=== PATIENT | male | born 1975 | race Caucasian/White ===

== ENCOUNTER 2019-08-27 15:30 | Emergency (ER) | payer OTHER, SELFPAY ==
[2019-08-27 15:31] VITALS: BP 129/95; PULSE 82; RESP 18; TEMP 36.8; O2SAT 94; BMI 22.4
[2019-08-27 15:34] VITALS: BP 129/95; PULSE 82; RESP 18; TEMP 36.8; O2SAT 94
[2019-08-27 15:36] VITALS: O2SAT 94
--- NOTE | 2019-08-27 15:48 | ED.VIS.GEN ---
History of Present Illness Chief Complaint: Cough Detail of Chief Complaint: Cough, nausea and vomiting Informant: Patient Onset: Days Context: Gradual Onset Narrative: Patient had a previous hiatal hernia repair. Over the past several days to week or so he has had increasing symptoms consistent with his prior hiatal hernia. He has had reflux along with nausea and vomiting. He is scheduled to undergo an upper GI series here next week. Patient denies fever or chills. - Past Medical History (1) Asthma Status: Chronic (2) High cholesterol Status: Chronic Past Medical History - Allergies and Home Meds Allergies/Adverse Reactions: Allergies azithromycin Allergy (Verified 08/27/19 15:35) Angioedema Primary Care Physician: Miguel Batista MD [Primary Care Provider] - Prior records reviewed: Yes Smoking Status: Former smoker Review of Systems General: Denies: Chills, Fever Eyes: Denies: Visual changes - bilaterally ENT: Denies: Bilateral ear pain Cardiovascular: Denies: Chest pain Respiratory: Reports: Cough. Denies: Dyspnea Gastrointestinal: Reports: Nausea, Vomiting Genitourinary: Denies: Dysuria Musculoskeletal: Denies: Extremity Pain Skin: Denies: Rash Neurological: Denies: Headache Allergy: Denies: Uticaria Physical Exam Vital Signs/Narrative: Vital Signs Temp Pulse Resp BP Pulse Ox 08/27/19 15:34 98.3 F 82 18 129/95 H 94 08/27/19 15:31 98.3 F 82 18 129/95 H 94 Inital Vital Signs reviewed: Yes General: Well nourished, Well developed Head: Normocephalic ENT: Moist mucous membranes Neck: Supple Cardiovascular: Regular rate, Regular rhythm Respiratory: No distress, CTA bilaterally Abdomen: Soft, Nontender, Normal bowel sounds Extremities: Nontender Skin: Normal color Neurological: Alert, Oriented x3 Psychological: Normal affect Diagnostic/Tx/Re-eval Impressions Chest X-Ray 08/27/19 16:20 IMPRESSION: Normal x-ray examination of the chest. Electronically Signed: Kendell Weir MD at 16:32 EDT Tel , Service support , 08/27/19 16:20 Chest 1 View (Portable) [RAD] Stat Laboratory Results 08/27/19 08/27/19 16:00 16:00 WBC 8.6 RBC 5.47 Hgb 16.5 Hct 49.2 MCV 89.9 MCH 30.2 MCHC 33.5 RDW Std Deviation 41.0 RDW Coeff of Jessica 12.4 Plt Count 257 MPV 9.6 Immature Gran % (Auto) 0.600 Neut % (Auto) 71.3 H Lymph % (Auto) 16.8 L Rhea % (Auto) 10.1 H Eos % (Auto) 0.9 Baso % (Auto) 0.3 Absolute Neuts (auto) 6.1 Absolute Lymphs (auto) 1.45 Nucleated RBC % 0 Sodium 140 Potassium 3.9 Chloride 102 Carbon Dioxide 33.0 H Anion Gap 5 BUN 17 Creatinine 1.03 Estim Creat Clear Calc 86.03 Est GFR (MDRD) Af Amer 101 Est GFR (MDRD) Non-Af 84 BUN/Creatinine Ratio 16.5 Glucose 97 Calcium 9.5 Total Bilirubin 0.40 Direct Bilirubin 0.16 AST 20 ALT 40 Alkaline Phosphatase 100 Total Protein 7.5 Albumin 4.0 Globulin 3.5 Lipase 70 L - Medical Decision Making Patient was given IV Zofran. On repeat evaluation nausea is improved. Chest x-ray is unremarkable. I did advise patient that he will be given a prescription for Zofran and he is to continue Pepcid. I did discuss with him that there is always a possibility that he could have coronavirus, however he does not have the classic symptoms. At this time he would be stable for discharge to home and self monitoring anyway. He states he already has information at home on how to do that. ED Disposition - Plan for ED Patient: Disposition: Home or Assisted Living Diagnosis: Vomiting Instructions: ED Nausea Vomiting Adult Prescriptions: Ondansetron [Zofran Odt] 4 mg PO Q8H PRN PRN #10 tab PRN Reason: Nausea Transmission Status: Pending to [id number] Referrals: Miguel Batista MD [Primary Care Provider] - 1 Week
[2019-08-27] MEDS: Ondansetron 4 MG/2 ML Vial IV (16:00)
[2019-08-27 16:12] LABS: Absolute Lymphocyte Count 1.45 X10^3/uL (0.83-4.51); Absolute Neutrophil Count 6.1 X10^3/uL (2.0-7.7); Basophil# 0.03 X10^3/uL; Basophil% 0.3 % (0-1); Eosinophil# 0.08 X10^3/uL; Eosinophils% 0.9 % (0-5); Hematocrit 49.2 % (40-54); Hemoglobin 16.5 g/dL (13.0-16.5); Lymphocyte # 1.45 X10^3/ul (4.0); Lymphocyte % 16.8 % (19-41); Mean Corp Hgb Conc 33.5 g/dL (32-36); Mean Corpuscular Hgb 30.2 pg (27.0-32.0); Mean Corpuscular Volume 89.9 fL (80-94); Mean Platelet Vol. 9.6 fl (6.2-12.0); Monocyte# 0.87 X10^3/uL; Monocyte% 10.1 % (0-10); NRBC Flagged by Analyzer 0 % (0-5); Neutrophil # 6.14 X10^3/uL (2.7-7.7); Neutrophil % 71.3 % (47-70); Platelet Count 257 K/mm3 (150-450); RBC Distribution Width CV 12.4 % (11.6-14.6); Red Blood Count 5.47 M/mm3 (4.6-6.2); White Blood Count 8.6 K/mm3 (4.4-11.0)
--- NOTE | 2019-08-27 16:20 | RAD_ITS ---
STUDY: X-RAY CHEST REASON FOR EXAM: Male, 43 years old. patient complains of cough TECHNIQUE: Single AP portable view of the chest. COMPARISON: None. FINDINGS: The lungs are clear and expanded. There is no demonstrated pleural abnormality. Normal size heart. Normal mediastinum and ruth. Normal visualized pulmonary arteries. Normal visualized aortic arch and descending thoracic aorta. Normal visualized thoracic spine. Normal visualized ribs, clavicles, and shoulders. There is no demonstrated abnormality of the visualized soft tissue structures of the upper abdomen. RAD/Chest 1 View (Portable) IMPRESSION: Normal x-ray examination of the chest. Electronically Signed: Kendell Weir MD at 16:32 EDT Tel , Service support ,
[2019-08-27 16:28] LABS: AST(SGOT) 20 U/L (15-37); Alanine Aminotransfer ALT/SGPT 40 U/L (16-61); Alkaline Phosphatase 100 U/L (45-117); Anion Gap 5 (5-15); BUN 17 mg/dL (7-18); BUN/Creat Ratio 16.5 RATIO (10-20); Bilirubin, Direct 0.16 mg/dL (0.00-0.30); Calcium,Total 9.5 mg/dL (8.5-10.1); Chloride 102 mmol/L (98-107); Creatinine, Serum 1.03 mg/dL (0.70-1.30); EST Glomerular Filtration Rate 84 mL/min (>60); Est Glom Filt Rate - Afr Amer 101 mL/min (>60); Estimated Creatinine Clearance 86.03 ml/min; Globulin 3.5 g/dL (2.2-4.2); Glucose 97 mg/dL (74-106); Lipase 70 U/L (73-393); Potassium 3.9 mmol/L (3.5-5.1); Protein, Total 7.5 g/dL (6.4-8.2); Sodium Level 140 mmol/L (136-145)
[2019-08-27 16:34] VITALS: BP 125/97; PULSE 95; RESP 24; TEMP 36.8; O2SAT 95
[2019-08-27 16:56] VITALS: BP 122/96; PULSE 81; RESP 20; TEMP 37; O2SAT 95
== END 2019-08-27 17:08 | disposition home or self-care (01) ==
PROVIDERS: Emergency Provider Emergency Medicine; PCP Family Medicine
DX: R11.2 Nausea with vomiting, unspecified (principal); E78.00 Pure hypercholesterolemia, unspecified; J45.909 Unspecified asthma, uncomplicated; Z87.891 Personal history of nicotine dependence
CPT/HCPCS: 71045; 80048; 80076; 83690; 85025; 96374; 99283; A4216; J2405

== ENCOUNTER → 2019-08-31 07:44 | Outpatient (CLI) | payer OTHER, SELFPAY ==
[2019-08-27 15:31] VITALS: BMI 22.4
--- NOTE | 2019-08-31 07:52 | RAD_ITS ---
STUDY: AIR-CONTRAST UPPER GI SERIES. REASON FOR EXAM: Male, 43 years old. DYSPHAGIA, ACID REFLUX FLUOROSCOPY TIME (if supplied): ( 45 seconds ) minutes/seconds. 16 images were obtained. TECHNIQUE: The patient ingested barium. Multiple images of the esophagus, stomach and duodenum were obtained. COMPARISON: None. FINDINGS: There is evidence of a small sliding hiatal hernia with gastroesophageal reflux. No mass lesion or ulceration is present. The remainder of the stomach and duodenum is unremarkable. RAD/Upper GI Dual Contrast IMPRESSION: Small sliding hiatal hernia with gastroesophageal reflux. Electronically Signed: Pradip Pal, at 9:23 EDT , Service support ,
== END ==
PROVIDERS: PCP Family Medicine; Referring Provider Family Medicine; Visit Provider Family Medicine
DX: K21.9 Gastro-esophageal reflux disease without esophagitis (principal); K44.9 Diaphragmatic hernia without obstruction or gangrene; J32.9 Chronic sinusitis, unspecified; J45.909 Unspecified asthma, uncomplicated
CPT/HCPCS: 74246

== ENCOUNTER → 2022-09-18 | Outpatient (CLI) | payer OTHER, SELFPAY ==
[2022-09-18 18:22] LABS: Hematocrit 47.4 % (40-54); Hemoglobin 15.6 g/dL (13.0-16.5); Mean Corp Hgb Conc 32.9 g/dL (32-36); Mean Corpuscular Hgb 30.1 pg (27.0-32.0); Mean Corpuscular Volume 91.5 fL (80-94); Mean Platelet Vol. 11.2 fl (6.2-12.0); Platelet Count 241 K/mm3 (150-450); RBC Distribution Width CV 12.5 % (11.6-14.6); RBC Distribution Width SD 42.3 fl (35.1-43.9); Red Blood Count 5.18 M/mm3 (4.6-6.2); White Blood Count 11.8 K/mm3 (4.4-11.0)
== END | disposition home or self-care (01) ==
PROVIDERS: PCP Family Medicine; Referring Provider Internal Medicine Gastroenterology; Visit Provider Internal Medicine Gastroenterology
DX: K62.5 Hemorrhage of anus and rectum (principal)
CPT/HCPCS: 36415; 85027